=== PATIENT | female | born 1985 | race Caucasian/White ===

== ENCOUNTER 2020-10-27 18:36 | Inpatient (IN) | payer OTHER ==
[2020-10-27] MEDS ORDERED: Bupivacaine 0.25% HCL 30 ML VIAL ONE (18:43)
[2020-10-27] MEDS ORDERED: ePHEDrine Sulfate 50 MG/10 ML VIAL ONE (18:43)
[2020-10-27] MEDS ORDERED: Misoprostol 200 MCG TAB PR PRN (19:14)
[2020-10-27] MEDS ORDERED: Carboprost 250 MCG/ML AMP IM PRN (19:14)
[2020-10-27] MEDS ORDERED: Methylergonovine 0.2 MG/ML VIAL IM PRN (19:14)
[2020-10-27] MEDS ORDERED: Ondansetron PF 4 MG/2 ML Vial IVP PRN ×2 (19:14→20:40)
[2020-10-27] MEDS ORDERED: Lidocaine 1% (PF) 30 ML VIAL SC PRN (19:14)
[2020-10-27] MEDS ORDERED: Promethazine HCl 25 MG/ML VIAL IM PRN ×2 (19:14→20:40)
[2020-10-27] MEDS ORDERED: Ibuprofen 800 MG TAB PO PRN (19:14)
[2020-10-27] MEDS ORDERED: Acetaminophen 500 MG TAB PO PRN (19:14)
[2020-10-27] MEDS ORDERED: hydrALAZINE 20 MG/ML VIAL SLOW IVP PRN ×2 (19:14)
[2020-10-27] MEDS ORDERED: Misoprostol 100 MCG TAB VAG SCH (19:15)
[2020-10-27] MEDS ORDERED: NS w/ Oxytocin 30 units 500 ML IVPB SCH (19:15)
[2020-10-27] MEDS: Lactated Ringer's 500 ML IV PRN ×3 (19:25→21:30)
[2020-10-27 19:28] VITALS: BMI 35.9
[2020-10-27] MEDS ORDERED: Lidocaine 1% (PF) 30 ML VIAL ONE (19:32)
[2020-10-27] MEDS ORDERED: Misoprostol 200 MCG TAB ONE (19:32)
[2020-10-27] MEDS ORDERED: NS w/ Oxytocin 30 units 500 ML ONE (19:32)
[2020-10-27] MEDS ORDERED: Methylergonovine 0.2 MG/ML VIAL ONE (19:33)
[2020-10-27] MEDS ORDERED: Fentanyl 2 mcg/Bup 0.1% Cadd 100 ML ONE (19:36)
[2020-10-27 19:39] LABS: Hemoglobin 11.7 g/dL (12.0-15.5); Mean Corpuscular HGB CONC 33.8 g/dL (32.0-36.0); Mean Corpuscular Hemoglobin 28.9 pg (27.0-33.0); Mean Corpuscular Volume 85.4 fl (81.6-98.3); Mean Platelet Volume 9.5 fl (7.4-10.4); Platelet Count 344 10x3/uL (150-450); RBC Distribution Width 12.3 % (11.5-14.5); Red Blood Cell (RBC) Count 4.05 10x6/uL (3.90-5.03); White Blood Cell (WBC) Count 19.8 10x3/uL (3.5-10.5)
[2020-10-27 20:12] LABS: HBSAg Index 0.12 S/CO (0-0.99); Hep B Surf Ag Non-Reactive S/CO (NonReactive); Syphilis Antibody Nonreactive (Nonreactive); Syphilis Antibody Index 0.03 S/CO (<1.00 Non-Reactive)
[2020-10-27] MEDS ORDERED: ePHEDrine Sulfate 50 MG/10 ML VIAL SLOW IVP PRN (20:40)
[2020-10-27] MEDS ORDERED: Hydrocerin (Eucerin) Cream 120 gm Jar TOP PRN (20:40)
[2020-10-27] MEDS ORDERED: Naloxone HCl 0.4 mg/ml Vial IVP PRN ×2 (20:40)
[2020-10-27] MEDS ORDERED: Acetaminophen 325 MG TAB PO PRN (20:40)
[2020-10-27] MEDS ORDERED: diphenhydrAMINE 50 MG/ML VIAL IVP PRN (20:40)
[2020-10-27] MEDS ORDERED: Fentanyl 2 mcg/Bupivacaine 0.1% Cassette 100 ML EPIDURAL SCH (20:45)
[2020-10-27] MEDS ORDERED: Communication Order-Pharmacy FS SCH (20:45)
[2020-10-27] MEDS: NS w/ Oxytocin 30 units 500 ML IV SCH (23:51)
[2020-10-28] MEDS: NS w/ Oxytocin 30 units 500 ML IV SCH (02:30)
[2020-10-28] MEDS ORDERED: NS w/ Oxytocin 30 units 500 ML IV SCH (03:30)
[2020-10-28] MEDS ORDERED: Zolpidem Tartrate 5 MG TAB PO PRN (03:30)
[2020-10-28] MEDS ORDERED: Milk Of Magnesia 30 ML UDCUP PO PRN (03:30)
[2020-10-28] MEDS ORDERED: Lanolin Ointment 7 GM TUBE TOP PRN (03:30)
[2020-10-28] MEDS ORDERED: Ondansetron PF 4 MG/2 ML Vial IVP PRN (03:30)
[2020-10-28] MEDS ORDERED: Bisacodyl 10 MG SUPP PR PRN (03:30)
[2020-10-28] MEDS ORDERED: Boostrix 0.5 ML (Tdap) VIAL IM ONE (03:30)
[2020-10-28] MEDS ORDERED: hydrALAZINE 20 MG/ML VIAL SLOW IVP PRN (03:30)
[2020-10-28 05:33] LABS: Hemoglobin 9.4 g/dL (12.0-15.5)
[2020-10-28] MEDS: Ibuprofen 800 MG TAB PO SCH ×3 (05:57→22:21)
[2020-10-28] MEDS: Prenatal Vitamin 1 TAB PO SCH (08:38)
[2020-10-28] MEDS: Docusate Calcium (SURFAK) 240 MG CAP PO SCH ×2 (08:38→22:22)
[2020-10-28] MEDS: Ferrous Sulfate 325 MG TAB PO SCH ×2 (08:38→17:21)
[2020-10-28 21:36] LABS: SARS-CoV-2 PCR by NAA Not Detected (NotDetected)
[2020-10-29] MEDS: Ibuprofen 800 MG TAB PO SCH (05:39)
[2020-10-29 08:09] VITALS: BP 115/75; TEMP 97.8
[2020-10-29] MEDS: Ferrous Sulfate 325 MG TAB PO SCH (08:38)
[2020-10-29] MEDS: Prenatal Vitamin 1 TAB PO SCH (08:39)
[2020-10-29] MEDS: Docusate Calcium (SURFAK) 240 MG CAP PO SCH (08:39)
== END 2020-10-29 13:00 | disposition home or self-care (01) | DRG 807 ==
LOC: CSHLD 18:36 → CSHPP 10-28 02:45
PROVIDERS: ADMIT Obstetrics & Gynecology; ATTEND Obstetrics & Gynecology
PROC: 10907ZC Drainage of Amniotic Fluid, Therapeutic from Products of Conception, Via Natural or Artificial Opening (ICD-10-PCS; principal; 2020-10-27)
PROC: 10E0XZZ Delivery of Products of Conception, External Approach (ICD-10-PCS; 2020-10-27)
PROC: 3E033VJ Introduction of Other Hormone into Peripheral Vein, Percutaneous Approach (ICD-10-PCS; 2020-10-27)
DX: O62.1 Secondary uterine inertia (principal); Z37.0 Single live birth; O77.0 Labor and delivery complicated by meconium in amniotic fluid; Z3A.42 42 weeks gestation of pregnancy
CPT/HCPCS: 36415; 51701; 51702; 85014; 85018; 85027; 86780; 86850; 86900; 86901; 87340; J2590; S0020; U0003; U0005

== ENCOUNTER 2022-02-21 00:23 | Inpatient (IN) | payer OTHER ==
[2022-02-21] MEDS ORDERED: HYDROcodone/Acetaminophen 5/325 mg Tablet PO PRN ×4 (00:52→07:16)
[2022-02-21] MEDS ORDERED: hydrALAZINE 20 MG/ML VIAL SLOW IVP PRN ×2 (00:52→07:16)
[2022-02-21] MEDS ORDERED: Acetaminophen 500 MG TAB PO PRN (00:52)
[2022-02-21] MEDS ORDERED: Ibuprofen 800 MG TAB PO PRN (00:52)
[2022-02-21] MEDS ORDERED: Butorphanol Tartrate 1 MG/ML VIAL SLOW IVP PRN (00:52)
[2022-02-21] MEDS ORDERED: Lidocaine 1% (PF) 30 ML VIAL SC PRN (00:52)
[2022-02-21] MEDS ORDERED: Promethazine HCl 25 MG/ML VIAL IM PRN (00:52)
[2022-02-21] MEDS ORDERED: Ondansetron PF 4 MG/2 ML Vial IVP PRN ×2 (00:52→07:16)
[2022-02-21] MEDS ORDERED: NS w/ Oxytocin 30 units 500 ML IV SCH ×2 (01:00→07:16)
[2022-02-21] MEDS ORDERED: Lactated Ringer's 1,000 ML IV SCH ×2 (01:00)
[2022-02-21 01:28] LABS: Hemoglobin 11.1 g/dL (12.0-15.5); Mean Corpuscular HGB CONC 33.8 g/dL (32.0-36.0); Mean Corpuscular Hemoglobin 27.3 pg (27.0-33.0); Mean Corpuscular Volume 80.6 fl (81.6-98.3); Platelet Count 492 10x3/uL (150-450); RBC Distribution Width 12.8 % (11.5-14.5); Red Blood Cell (RBC) Count 4.07 10x6/uL (3.90-5.03); White Blood Cell (WBC) Count 12.7 10x3/uL (3.5-10.5)
[2022-02-21 01:47] LABS: Syphilis Antibody Nonreactive (Nonreactive); Syphilis Antibody Index 0.05 S/CO (<1.00 Non-Reactive)
[2022-02-21 01:49] LABS: HBSAg Index 0.14 S/CO (0-0.99); Hep B Surf Ag Non-Reactive S/CO (NonReactive)
[2022-02-21] MEDS: Misoprostol 200 MCG TAB ONE (06:39)
[2022-02-21] MEDS ORDERED: Benzocaine-Menthol 82.5 ML CAN TOP PRN (07:16)
[2022-02-21] MEDS ORDERED: Bisacodyl 10 MG SUPP PR PRN (07:16)
[2022-02-21] MEDS ORDERED: Milk Of Magnesia 30 ML UDCUP PO PRN (07:16)
[2022-02-21] MEDS ORDERED: Misoprostol 200 MCG TAB VAG PRN (07:16)
[2022-02-21] MEDS ORDERED: Boostrix 0.5 ML (Tdap) VIAL (>/=7 yrs of age) IM ONE (07:16)
[2022-02-21] MEDS ORDERED: Ibuprofen 800 MG TAB PO SCH (08:00)
[2022-02-21] MEDS: Ferrous Sulfate 325 MG TAB PO SCH ×2 (08:56→18:07)
[2022-02-21] MEDS: Prenatal Vitamin 1 TAB PO SCH (09:23)
[2022-02-21] MEDS: Docusate 100 MG CAP PO SCH ×2 (09:23→21:52)
[2022-02-21 09:47] LABS: SARS-CoV-2 NAA Rapid Test DETECTED (NotDetected)
[2022-02-21] MEDS: Ibuprofen 800 MG TAB PO SCH ×2 (13:52→21:52)
[2022-02-22] MEDS: Ibuprofen 800 MG TAB PO SCH ×3 (05:16→22:16)
[2022-02-22] MEDS: Ferrous Sulfate 325 MG TAB PO SCH ×2 (07:20→15:56)
[2022-02-22] MEDS: Prenatal Vitamin 1 TAB PO SCH (09:27)
[2022-02-22] MEDS: Docusate 100 MG CAP PO SCH ×2 (09:27→22:16)
[2022-02-22] MEDS: Misoprostol 200 MCG TAB ONE (20:42)
[2022-02-23] MEDS: Ibuprofen 800 MG TAB PO SCH (05:15)
[2022-02-23] MEDS: Ferrous Sulfate 325 MG TAB PO SCH (08:20)
[2022-02-23 08:40] VITALS: BP 112/73; TEMP 98.5
[2022-02-23] MEDS: Docusate 100 MG CAP PO SCH (09:01)
[2022-02-23] MEDS: Prenatal Vitamin 1 TAB PO SCH (09:01)
== END 2022-02-23 11:50 | disposition home or self-care (01) | DRG 805 ==
LOC: CSHLD/OP 00:23 → CSHLD 00:52 → CSHPP 08:40
PROVIDERS: ADMIT Obstetrics & Gynecology; ATTEND Obstetrics & Gynecology
PROC: 10E0XZZ Delivery of Products of Conception, External Approach (ICD-10-PCS; principal; 2022-02-21)
PROC: 8E0ZXY6 Isolation (ICD-10-PCS; 2022-02-21)
DX: O77.0 Labor and delivery complicated by meconium in amniotic fluid (principal); O41.1230 Chorioamnionitis, third trimester, not applicable or unspecified; Z37.0 Single live birth; Z3A.39 39 weeks gestation of pregnancy
CPT/HCPCS: 85027; 86780; 86850; 86900; 86901; 87340; 88307; 99285; U0002